=== PATIENT | female | born 1940 | race Caucasian/White ===

== ENCOUNTER 2016-11-29 13:34 | Emergency (ER) | payer OTHER, MEDICARE ==
--- NOTE | 2016-11-29 14:01 | EDPHY ---
H & P Time Seen by Provider: 11/29/16 13:57 HPI/ROS: CHIEF COMPLAINT: Left thoracic pain. HISTORY OF PRESENT ILLNESS: The patient is a 76-year-old female presenting with atraumatic left thoracic pain. The pain began one week ago and worsened yesterday. The pain is moderate and constant. Aggravated by breathing and left arm movements. No change with exertion. No prior history of similar discomfort. She denies neck pain, chest pain, fever, myalgia, cough, shortness of breath. REVIEW OF SYSTEMS: A complete 10-point review of systems was performed and is negative except for those items mentioned in the HPI. Past Medical/Surgical History: Asthma, arthritis, lumbar fusion. Social History: Former smoker, no alcohol use. Smoking Status: Former smoker Physical Exam: General Appearance: Alert, no distress Eyes: Pupils equal and round, no conjunctival pallor or injection ENT, Mouth: Mucous membranes moist Neck: Normal inspection Respiratory: Lungs are clear to auscultation Cardiovascular: Regular rate and rhythm Chest: Left lateral chest wall tenderness. Gastrointestinal: Abdomen is soft and non-tender Neurological: A&O, nonfocal, normal gait Skin: Warm and dry, no rash Extremities: Nontender, no pedal edema Back: Tenderness over lower left scapula. Paraspinous tenderness at left lower thoracic region. Psychiatric: Mood and affect normal Constitutional: Initial Vital Signs Temperature (C) 36.9 C 11/29/16 13:35 Heart Rate 77 11/29/16 13:35 Respiratory Rate 18 11/29/16 13:35 Blood Pressure 135/87 H 11/29/16 13:35 O2 Sat (%) 95 11/29/16 13:35 O2 Delivery Mode Room Air Allergies/Adverse Reactions: Penicillins Allergy (Mild, Verified 11/29/16 13:36) Rash Home Medications: Medication Instructions Recorded Atorvastatin Calcium [Lipitor 10 10 mg PO DAILY 04/21/13 mg (*)] Montelukast Sodium [Singulair 10 10 mg PO DAILY 04/21/13 mg (*)] Spironolactone [Aldactone 25 MG 25 mg PO DAILY 04/21/13 (*)] celeCOXIB [celeBREX (RX)] 200 mg PO DAILY PRN 04/21/13 Albuterol Sulfate [Vospire ER] 4 mg PO BID 05/07/13 Amitriptyline HCl [Elavil 10 mg 10 mg PO HS 05/07/13 (*)] Diazepam [Valium 2 MG (*)] 2 mg PO BID PRN 05/07/13 Aspirin [Aspirin 81mg (*)] 81 mg PO DAILY 06/04/13 Furosemide [Lasix 20 MG (*)] 20 mg PO DAILY 06/04/13 Gabapentin [Neurontin 400 MG (*)] 400 mg PO ,,05/26/14 Azelastine/Fluticasone [Dymista 1 spray EACHNARE HS 05/27/14 Nasal [place]] Beclomethasone Qvar 80 [Qvar 80] 1 puffs IH BID 08/13/14 Omeprazole [Prilosec 20 mg] 20 mg PO DAILY 08/13/14 Hydrocodone/APAP 5/325 [[place] 1 - 2 each PO Q4-6PRN PRN #20 tab 03/10/15 5/325] Medical Decision Making - Diagnostics Imaging: Chest x-ray reviewed by Dr. Alberto, radiology, reveals: 1. Minimal left basilar atelectasis. Otherwise no acute process. 2. Subacute anterior right sixth rib fracture. Study: CT of the chest. Indication: Elevated d-dimer, back pain. Results: Negative. The study was read by the radiologist Dr. Alberto. I viewed the images myself on the PACS system. ED Course/Re-evaluation: This patient presents with mid thoracic back pain, most likely musculoskeletal in etiology. Given her advanced age, I will do a thorough evaluation, including chest x-ray, EKG laboratory studies. Laboratory studies discussed with patient and her . D-dimer is elevated so a CT pulmonary angiogram was ordered and returned as no evidence of pulmonary embolism. I re-examined her at this point. She continues to have similar left-sided chest wall tenderness. Vital signs have remained normal throughout her emergency department stay. Feel that she is safe and stable for discharge with a dx of musculoskeletal pain. Differential Diagnosis: Differential diagnosis includes though it is not limited to pneumonia, pneumothorax, pulmonary embolism, aortic dissection, pericarditis, acute coronary syndrome. - Data Points Laboratory Results: Laboratory Results 11/29/16 14:35 11/29/16 14:35 11/29/16 11/29/16 11/29/16 14:35 14:35 14:35 WBC 7.85 10^3/uL 10^3/uL (3.80-9.50) RBC 4.63 10^6/uL 10^6/uL (4.18-5.33) Hgb 14.4 g/dL g/dL (12.6-16.3) Hct 42.9 % % (38.0-47.0) MCV 92.7 fL fL (81.5-99.8) MCH 31.1 pg pg (27.9-34.1) MCHC 33.6 g/dL g/dL (32.4-36.7) RDW 14.0 % % (11.5-15.2) Plt Count 234 10^3/uL 10^3/uL (150-400) MPV 9.6 fL fL (8.7-11.7) Neut % (Auto) 77.3 % H % (39.3-74.2) Lymph % (Auto) 15.8 % % (15.0-45.0) [place] % (Auto) 5.7 % % (4.5-13.0) Eos % (Auto) 0.3 % L % (0.6-7.6) Baso % (Auto) 0.5 % % (0.3-1.7) Nucleat RBC Rel Count 0.0 % % (0.0-0.2) Absolute Neuts (auto) 6.07 10^3/uL 10^3/uL (1.70-6.50) Absolute Lymphs (auto) 1.24 10^3/uL 10^3/uL (1.00-3.00) Absolute Monos (auto) 0.45 10^3/uL 10^3/uL (0.30-0.80) Absolute Eos (auto) 0.02 10^3/uL L 10^3/uL (0.03-0.40) Absolute Basos (auto) 0.04 10^3/uL 10^3/uL (0.02-0.10) Absolute Nucleated RBC 0.00 10^3/uL 10^3/uL (0-0.01) Immature Gran % 0.4 % % (0.0-1.1) Immature Gran # 0.03 10^3/uL 10^3/uL (0.00-0.10) D-Dimer 0.97 ug/mLFEU H ug/mLFEU (0.00-0.50) Sodium 139 mEq/L mEq/L (134-144) Potassium 4.1 mEq/L mEq/L (3.5-5.2) Chloride 102 mEq/L mEq/L (97-110) Carbon Dioxide 27 mEq/l mEq/l (22-31) Anion Gap 10 mEq/L mEq/L (8-16) BUN 8 mg/dL mg/dL (7-23) Creatinine 0.7 mg/dL mg/dL (0.6-1.0) Estimated GFR > 60 Glucose 103 mg/dL H mg/dL (70-100) Calcium 9.7 mg/dL mg/dL (8.5-10.4) Urine Color Urine Appearance Urine pH Ur Specific [place] Urine Protein Urine Ketones Urine Blood Urine Nitrate Urine Bilirubin Urine Urobilinogen Ur Leukocyte Esterase Urine RBC Urine WBC Ur Epithelial Cells Urine Bacteria Urine Mucus Urine Glucose 11/29/16 14:25 WBC RBC Hgb Hct MCV MCH MCHC RDW Plt Count MPV Neut % (Auto) Lymph % (Auto) [place] % (Auto) Eos % (Auto) Baso % (Auto) Nucleat RBC Rel Count Absolute Neuts (auto) Absolute Lymphs (auto) Absolute Monos (auto) Absolute Eos (auto) Absolute Basos (auto) Absolute Nucleated RBC Immature Gran % Immature Gran # D-Dimer Sodium Potassium Chloride Carbon Dioxide Anion Gap BUN Creatinine Estimated GFR Glucose Calcium Urine Color PALE YELLOW Urine Appearance CLEAR Urine pH 7.0 (5.0-7.5) Ur Specific [place] 1.002 (1.002-1.030) Urine Protein NEGATIVE (NEGATIVE) Urine Ketones NEGATIVE (NEGATIVE) Urine Blood NEGATIVE (NEGATIVE) Urine Nitrate NEGATIVE (NEGATIVE) Urine Bilirubin NEGATIVE (NEGATIVE) Urine Urobilinogen NEGATIVE EU EU (0.2-1.0) Ur Leukocyte Esterase TRACE H (NEGATIVE) Urine RBC 1-3 /hpf /hpf (0-3) Urine WBC 1-3 /hpf /hpf (0-3) Ur Epithelial Cells TRACE /lpf /lpf (NONE-1+) Urine Bacteria TRACE /hpf H /hpf (NONE SEEN) Urine Mucus TRACE /lpf /lpf (NONE-1+) Urine Glucose NEGATIVE (NEGATIVE) Departure - Departure Disposition: Home, Routine, Self-Care Clinical Impression: Musculoskeletal back pain Condition: Good Instructions: Thoracic Pain (ED) Additional Instructions: Take 600mg Ibuprofen 3 times daily when needed for pain for the next 3 days only. Call your primary care provider and set up a follow up appointment if symptoms are not improving in the next 2-3 days. Return to the emergency department for any serious worsening of condition. Referrals: Jenny Jimenez MD [Primary Care Provider] - As per Instructions Report Scribed for: Michelle Loera Report Scribed by: Lex Mcclain Date of Report: 11/29/16 Time of Report: 14:01 Physician Review and Approval Statement: 11/29/16 14:01 Portions of this note were transcribed by a medical director. I personally performed a history, physical exam, medical decision making, and confirmed accuracy of information the transcribed note.
--- NOTE | 2016-11-29 14:42 | CPEKG ---
Heart Rate: 67 RR Interval: 896 P-R Interval: 144 QRSD Interval: 92 QT Interval: 404 QTC Interval: 427 P [place]: 42 QRS [place]: -58 T Wave [place]: 11 EKG Severity - ABNORMAL ECG - EKG Impression: SINUS RHYTHM EKG Impression: LAD, CONSIDER LAFB OR INFERIOR INFARCT Electronically Signed By: Michelle Loera 29-Nov-2016 21:24:41
[2016-11-29 15:01] LABS: COLOR PALE YELLOW; LEUKOCYTE ESTERASE,URINE TRACE (NEGATIVE); NITRITE,URINE NEGATIVE (NEGATIVE)
[2016-11-29 15:01] LABS: % IMMATURE GRANULYOCYTES 0.4 % (0.0-1.1); ABSOLUTE IMMATURE GRANULOCYTES 0.03 10^3/uL (0.00-0.10); ADD DIFF? NO; ADD MORPH? NO; ADD SCAN? NO; ATYPICAL LYMPHOCYTE FLAG 0 (0-99); FRAGMENT RBC FLAG 0 (0-99); HEMATOCRIT 42.9 % (38.0-47.0); HEMOGLOBIN 14.4 g/dL (12.6-16.3); LEFT SHIFT FLG 0 (0-99); LIPEMIA HEMOLYSIS FLAG 80 (0-99); MEAN CELL HEMOGLOBIN 31.1 pg (27.9-34.1); MEAN CELL HEMOGLOBIN CONCENTR. 33.6 g/dL (32.4-36.7); MEAN CELL VOLUME 92.7 fL (81.5-99.8); MEAN PLATELET VOLUME 9.6 fL (8.7-11.7); PLATELET CLUMPS FLAG 10 (0-99); PLATELET COUNT 234 10^3/uL (150-400); RED BLOOD CELL COUNT 4.63 10^6/uL (4.18-5.33)
[2016-11-29 15:04] LABS: BACTERIA TRACE /hpf (NONE SEEN); MUCUS TRACE /lpf (NONE-1+)
[2016-11-29 15:17] LABS: ANION GAP 10 mEq/L (8-16); CALCIUM 9.7 mg/dL (8.5-10.4); CARBON DIOXIDE 27 mEq/l (22-31); CHLORIDE 102 mEq/L (97-110); CREATININE 0.7 mg/dL (0.6-1.0); GLOMERULAR FILTRATION RATE > 60; GLUCOSE 103 mg/dL (70-100); POTASSIUM 4.1 mEq/L (3.5-5.2); SODIUM 139 mEq/L (134-144)
[2016-11-29] MEDS ORDERED: IOPAMIDOL (ISOVUE-370) 150 ML BTL IV ONE (15:27)
[2016-11-29 16:28] VITALS: RESP 16; TEMP 98.1
[2016-11-29 17:33] VITALS: BP 128/99; PULSE 62; O2SAT 94
== END 2016-11-29 17:32 | disposition home or self-care (01) ==
DX: M54.6 Pain in thoracic spine (principal); J45.909 Unspecified asthma, uncomplicated; Z87.891 Personal history of nicotine dependence; Z79.82 Long term (current) use of aspirin
CPT/HCPCS: 71020; 71275; 93005; 99285; Q9967

== ENCOUNTER → 2017-01-03 | Outpatient (CLI) | payer OTHER, MEDICARE | LOC: BMCIMAGING 10:36 | PROVIDERS: ATTEND Internal Medicine Cardiovascular Disease | DX: I65.23 Occlusion and stenosis of bilateral carotid arteries (principal); I25.10 Atherosclerotic heart disease of native coronary artery without angina pectoris ==

== ENCOUNTER → 2017-02-27 | Outpatient (CLI) | payer OTHER, MEDICARE | LOC: BMCIMAGING 09:03 | PROVIDERS: ATTEND Internal Medicine | DX: Z12.31 Encounter for screening mammogram for malignant neoplasm of breast (principal); Z80.3 Family history of malignant neoplasm of breast | CPT/HCPCS: G0202 ==

== ENCOUNTER → 2017-03-12 | Outpatient (CLI) | payer OTHER, MEDICARE | LOC: BMCIMAGING 10:56 | PROVIDERS: ATTEND Internal Medicine | DX: R92.8 Other abnormal and inconclusive findings on diagnostic imaging of breast (principal) | CPT/HCPCS: 76641; G0206 ==

== ENCOUNTER → 2017-03-26 | Outpatient (CLI) | payer OTHER, MEDICARE ==
[~2017-03-26] MED LIST: BUPIVACAINE 0.5% 10 ML SDV ONE; LIDO/EPI 1% **Not for Epidural 20 ML MDV ONE; LIDOCAINE 1% 300 MG/30 ML SDV ONE; THROMBIN (BOVINE) 5,000 UNIT VIAL TP ONE
== END ==
LOC: FIMAGING 07:11
PROVIDERS: ATTEND Internal Medicine
PROC: BH01ZZZ Plain Radiography of Left Breast (ICD-10-PCS; principal; 2017-03-26)
PROC: 0HBU3ZX Excision of Left Breast, Percutaneous Approach, Diagnostic (ICD-10-PCS; principal; 2017-03-26)
DX: D24.2 Benign neoplasm of left breast (principal); N60.82 Other benign mammary dysplasias of left breast; Z80.3 Family history of malignant neoplasm of breast
CPT/HCPCS: 19083; 88305; 88342; G0206

== ENCOUNTER → 2017-04-16 | Outpatient (CLI) | payer OTHER, MEDICARE | LOC: BMCIMAGING 12:49 | PROVIDERS: ATTEND Internal Medicine | DX: R22.32 Localized swelling, mass and lump, left upper limb (principal) ==

== ENCOUNTER → 2017-05-24 | Outpatient (CLI) | payer OTHER, MEDICARE | LOC: BMCIMAGING 09:52 | PROVIDERS: ATTEND Internal Medicine Rheumatology | DX: M81.0 Age-related osteoporosis without current pathological fracture (principal) ==

== ENCOUNTER → 2017-10-04 | Outpatient (CLI) | payer OTHER, MEDICARE | LOC: FIMAGING 12:05 | PROVIDERS: ATTEND Internal Medicine | DX: N64.4 Mastodynia (principal) | CPT/HCPCS: 76641; G0206 ==

== ENCOUNTER → 2017-10-10 | Outpatient (CLI) | payer OTHER, MEDICARE | LOC: BMCIMAGING 13:42 | PROVIDERS: ATTEND Family Medicine | DX: S22.32XA Fracture of one rib, left side, initial encounter for closed fracture (principal) | CPT/HCPCS: 71101-PO ==

== ENCOUNTER → 2018-06-13 | Outpatient (CLI) | payer OTHER, MEDICARE | LOC: BMCIMAGING 08:34 | PROVIDERS: ATTEND Internal Medicine | DX: K76.89 Other specified diseases of liver (principal) ==

== ENCOUNTER → 2018-07-30 | Outpatient (CLI) | payer OTHER, MEDICARE | LOC: BMCIMAGING 14:31 | PROVIDERS: ATTEND Physician Assistant | DX: M19.011 Primary osteoarthritis, right shoulder (principal); M75.41 Impingement syndrome of right shoulder ==

== ENCOUNTER 2018-10-23 07:45 | Day surgery (SDC) | payer OTHER, MEDICARE ==
[2018-10-23] MEDS ORDERED: ACETAMINOPHEN 500 MG TAB PO ONE (08:12)
[2018-10-23] MEDS ORDERED: VANCOMYCIN PHARMACY TO DOSE MISC ONE (08:12)
[2018-10-23] MEDS ORDERED: LR 1,000 ML IV ONE (08:17)
[2018-10-23] MEDS ORDERED: LIDOCAINE 1% 2 ML INJ ID PRN (08:17)
[2018-10-23] MEDS ORDERED: VANCOMYCIN HCL/NORMAL SALINE 250 ML IV ONE (08:30)
--- NOTE | 2018-10-23 08:57 | PDHPUP ---
History & Physical Update H&P update statement: This history and physical update is based on an assessment of the patient which was completed after admission or registration (within 24 hours), but prior to the surgery/procedure. H&P update: H&P reviewed & patient examined, no change in patient's condition since H&P completed (I spoke to the patient regarding the risks of infection, nerve injury, bleeding, cement migration and pulmonary embolus. I also told her that this may not help her leg pain very much. She understands and wishes to proceed. )
[2018-10-23] MEDS ORDERED: IOPAMIDOL (ISOVUE-M 300) 15 ML VIAL ONE (08:59)
[2018-10-23] MEDS ORDERED: CHLORHEXIDINE GLUC HIBICLENS 118 ML BTL TP ONE (08:59)
[2018-10-23] MEDS ORDERED: EPINEPHrine 1 MG/ML INJ ONE (08:59)
[2018-10-23] MEDS ORDERED: BUPIVACAINE 0.25% 30 ML SDV ONE (08:59)
[2018-10-23] MEDS ORDERED: BACITRACIN 50,000 UNITS/10 ML SYR IRR ONE (09:00)
--- NOTE | 2018-10-23 09:05 | PDANEPAE ---
ANE Past Medical History - Cardiovascular History Hx Hypertension: No Hx Arrhythmias: No Hx Chest Pain: No Hx Coronary Artery / Peripheral Vascular Disease: No Hx CHF / Valvular Disease: No Hx Palpitations: No Cardiovascular History Comment: PLAQUE ARTERY SL. NO CP - Pulmonary History Hx COPD: No Hx Asthma/Reactive Airway Disease: Yes Hx Recent Upper Respiratory Infection: Yes Hx Oxygen in Use at Home: Yes Hx Sleep Apnea: Yes Sleep Apnea Screening Result - Last Documented: Positive Pulmonary History Comment: KADIE, USE CPAP W 2L O2. ASTHMA. NO SOB W STAIRS - Neurologic History Hx Cerebrovascular Accident: No Hx Seizures: No Hx Dementia: No - Endocrine History Hx Diabetes: No Endocrine History Comment: PARATHYROID REM - Renal History Hx Renal Disorders: No Renal History Comment: LEAKAGE STRESS INCONT, URGENCY. PROLAPSED BLADDER - Liver History Hx Hepatic Disorders: No - Neurological & Psychiatric Hx Hx Neurological and Psychiatric Disorders: No Neurological / Psychiatric History Comment: ANXIETY OCC - Cancer History Hx Cancer: No - Congenital Disorder History Hx Congenital Disorders: No - GI History Hx Gastrointestinal Disorders: Yes Gastrointestinal History Comment: CONSTIPATION. acid reflux - Other Health History Other Health History: BRUISE EASILY. 1 MISSING MOLAR. OA. OSTEOPOROSIS - Chronic Pain History Chronic Pain: Yes (right leg pain) - Surgical History Prior Surgeries: L3-4 TLIF 06/04/13. L BREAST BX- BENIGN. PRK SURG KIA EYES. WISDOM TEETH X2. PARATHYROIDECTOMY. L ramone. thump repiar on right ANE Review of Systems Review of Systems: - Exercise capacity METS (RN): 4 METS ANE Patient History - Allergies Allergies/Adverse Reactions: Penicillins Allergy (Mild, Verified 11/29/16 13:36) Rash - Home Medications Home Medications: Atorvastatin Calcium [Lipitor 10 mg (*)] 10 mg PO DAILY 04/21/13 [Last Taken 07/21 05:00] Montelukast Sodium [Singulair 10 mg (*)] 10 mg PO DAILY 04/21/13 [Last Taken 07/21 05:00] Spironolactone [Aldactone 25 MG (*)] 25 mg PO DAILY 04/21/13 [Last Taken 08:00] celeCOXIB [celeBREX (RX)] 200 mg PO DAILY PRN 04/21/13 [Last Taken 08/10/14] Albuterol Sulfate [Vospire ER] 4 mg PO BID 05/07/13 [Last Taken 08/17/14 05:00] Amitriptyline HCl [Elavil 10 mg (*)] 10 mg PO HS 05/07/13 [Last Taken 08/16/14 22:30] Diazepam [Valium 2 MG (*)] 2 mg PO BID PRN 05/07/13 [Last Taken 08/17/14 05:00] Aspirin [Aspirin 81mg (*)] 81 mg PO DAILY 06/04/13 [Last Taken 08/10/14] Furosemide [Lasix 20 MG (*)] 20 mg PO DAILY 06/04/13 [Last Taken 08/16/14 08:00] Gabapentin [Neurontin 400 MG (*)] 400 mg PO ,,05/26/14 [Last Taken 05:00] Azelastine/Fluticasone [Dymista Nasal [place]] 1 spray EACHNARE HS 05/27/14 [Last Taken 08/16/14 22:30] Beclomethasone Qvar 80 [Qvar 80] 1 puffs IH BID 08/13/14 [Last Taken 08/17/14 05 :00] Omeprazole [Prilosec 20 mg] 20 mg PO DAILY 08/13/14 [Last Taken 08/17/14 05:00] - Smoking Hx Smoking Status: Former smoker - Family Anes Hx Family Hx Anesthesia Complications: NONE ANE Labs/Vital Signs - Vital Signs Height: 154.94 cm Weight: 71.214 kg ANE Physical Exam - Airway Mallampati Score: Class 2 - ASA Status ASA Status: III ANE Anesthesia Plan Anesthesia Plan: general endotracheal anesthesia
[2018-10-23 09:19] LABS: PLATELET COUNT 194 10^3/uL (150-400)
[2018-10-23] MEDS ORDERED: fentaNYL 100 MCG/2 ML INJ ONE ×2 (09:19→10:57)
[2018-10-23] MEDS ORDERED: PROPOFOL 200 MG/20 ML VIAL ONE (09:19)
[2018-10-23] MEDS ORDERED: ROCURONIUM 50 MG/5 ML VIAL ONE (09:20)
[2018-10-23] MEDS ORDERED: METOCLOPRAMIDE 10 MG/2 ML VIAL ONE (09:20)
[2018-10-23] MEDS ORDERED: ONDANSETRON 4 MG/2 ML VIAL ONE (09:21)
[2018-10-23] MEDS ORDERED: SUGAMMADEX SODIUM 200 MG/2 ML VIAL IVP ONE (10:39)
[2018-10-23] MEDS ORDERED: LR 500 ML IV PRN (10:55)
[2018-10-23] MEDS ORDERED: NALOXONE HCL 0.4 MG/ML INJ IVP PRN (10:55)
--- NOTE | 2018-10-23 10:56 | POSTANESTH ---
Post Anesthetic Evaluation Cardiovascular Status: Normal, Stable Respiratory Status: Similar to Pre-op Cond. Level of Consciousness/Mental Status: Can Participate in Eval Pain Control: Adequate, Prn Tx Ordered Nausea/Vomiting Control: Adequate, Prn Tx Ordered Complications Possibly Related to Anesthesia: None Noted
[2018-10-23] MEDS: fentaNYL 100 MCG/2 ML INJ IVP PRN ×2 (10:59→11:15)
[2018-10-23] MEDS ORDERED: ONDANSETRON DISINTEGRATING 4 MG TAB PO PRN (11:31)
[2018-10-23] MEDS ORDERED: oxyCODONE IR 5 MG TAB PO PRN (11:32)
[2018-10-23] MEDS ORDERED: HYDROCODONE/APAP 5/325 TAB ONE (11:39)
[2018-10-23] MEDS ORDERED: HYDROCODONE/APAP 5/325 TAB PO PRN (11:51)
[2018-10-23] MEDS ORDERED: METHOCARBAMOL 750 MG TAB ONE (12:04)
[2018-10-23 13:52] VITALS: BP 124/75
[2018-10-23] MEDS ORDERED: METHOCARBAMOL 750 MG TAB PO SCH (16:00)
--- NOTE | 2018-10-23 17:40 | GOP ---
DATE OF OPERATION: 10/23/2018 SURGEON: Thai Oconnor MD NEUROSURGEON: Thai Oconnor MD. ADMINISTRATIVE SUPPORT SPECIALIST: None. PREOPERATIVE DIAGNOSIS: L3 compression fracture. POSTOPERATIVE DIAGNOSIS: L3 compression fracture. PROCEDURE PERFORMED: L3 bilateral transpedicular kyphoplasty. FINDINGS: Successful kyphoplasty. INDICATIONS: The patient is a 78-year-old woman who has had a previous L4-[address] Ulloa. S he presented with back and right leg pain to his office. An MRI showed an acute compression fracture at L3 with minimal loss of height, but a lot of bone marrow edema. He offered her a kyphoplasty and asked me to perform this procedure given the patient's symptoms and the difficulty with scheduling o therwise. I spoke to her about the risks and benefits of the procedure this morning including failur e to relieve the symptoms, cement extravasation, nerve injury, bleeding, or pulmonary embolus. She u nderstands these risks and was willing to proceed. DESCRIPTION OF PROCEDURE: After informed consent was obtained from the patient, the patient was brou ght to the operating room and a formal time-out was performed, identifying the patient by name, medic al record number and date of . Preoperative antibiotics were given. The endotracheal tube was placed, and general endotracheal anesthesia was smoothly induced. The patient was then turned to the prone position on the Cruz table. All appropriate pressure points were padded and checked. The lumbar region was prepped and draped in the normal sterile fashion. The pedicle entry points were lo calized using AP and lateral fluoroscopy and 10 cc of 0.25% Marcaine with epinephrine was infiltrated in the skin and subcutaneous tissues for postoperative analgesia and hemostasis. A stab incision wa s made over the pedicle entry points, and 18-gauge trocars were then used to get bilateral transpedic ular access into the vertebral body using AP and lateral fluoroscopy. The hand drill was used to dri ll into the vertebral body, and 15 mm kyphoplasty balloons were then placed into the vertebral body a nd their position was checked using AP and lateral fluoroscopy. The balloons were then inflated with 3 cc of contrast material each with no breach outside of the vertebral body and good crossing of the midline. The balloons were then removed, and bone fillers were placed. Methylmethacrylate cement w as infused into the vertebral body in 0.5 cc aliquots through each pedicle for a total of 9 cc of keturah l. The stylets were replaced, and the trocars were carefully removed without leaving any tail of margarito ent. Final AP and lateral radiographs showed good fill of the bone with interdigitation across the m idline and no extravasation. Steri-Strips were placed over the stab incisions. The patient was then awakened in the operating room where she was extubated and transferred to the PACU in stable conditi on. There were no operative complications. I was scrubbed and present for the entire procedure. Al l sponge and needle counts were correct at the end of the case. Blood loss was less than 5 cc. Flui ds and urine output per the anesthesia record. There were no specimens. There were no drains. /[id number]/MODL
== END 2018-10-23 14:53 | disposition home or self-care (01) ==
LOC: FSGY 07:45
PROVIDERS: ATTEND Neurological Surgery
DX: M80.08XA Age-related osteoporosis with current pathological fracture, vertebra(e), initial encounter for fracture (principal); Z98.1 Arthrodesis status; J45.909 Unspecified asthma, uncomplicated; G47.33 Obstructive sleep apnea (adult) (pediatric); F41.9 Anxiety disorder, unspecified; K59.00 Constipation, unspecified; K21.9 Gastro-esophageal reflux disease without esophagitis; Z96.642 Presence of left artificial hip joint; Z87.891 Personal history of nicotine dependence
CPT/HCPCS: C1713; J0171; J2405; J2704; J2765; J3010; J3370; Q9967

== ENCOUNTER → 2019-04-04 | Outpatient (CLI) | payer OTHER, MEDICARE | LOC: BMCIMAGING 13:40 ==